=== PATIENT | male | born 1945 | race Hispanic/Latino ===

== ENCOUNTER 2019-08-15 13:43 | Inpatient (IN) | payer OTHER ==
[~2019-08-15] VITALS: Ht 162.6 cm; Wt 97.3 kg
[~2019-08-15 13:43] MED LIST: BUPR150T8 PO; DILT240T13 PO; FLU VACC QS2019-20 36MOS UP/PF 60 MCG/0.5 ML ML IM SCH; LOSA100T58 PO; METO-409 PO; PRAV40TA3 PO; TRAZ-185 PO
[2019-08-15] MEDS ORDERED: SODIUM CHLORIDE 0.9% 1000ML 1,000 ML IV ONE (14:16)
[2019-08-15 14:17] LABS: BASOPHILS % (AUTO) 0.5 % (0.0-5.0); EOSINOPHILS % (AUTO) 1.1 % (0.0-8.0); LYMPHOCYTES % (AUTO) 16.4 % (21.0-51.0); MEAN CORPUSCULAR HEMOGLOBIN 30.5 pg (27.0-33.0); MEAN CORPUSCULAR HGB CONC 32.4 g/dL (32.0-36.0); NEUTROPHILS % (AUTO) 74.1 % (40.0-77.0); NUCLEATED RED BLOOD CELLS 0.6 % (0.0-0.19); PLATELET COUNT (AUTO) 187 K/uL (130-400); WHITE BLOOD COUNT (AUTO) 11.1 K/uL (4.8-10.8)
[2019-08-15 14:23] LABS: HEMATOCRIT 18.8 % (42-54); INR 1.02 (0.85-1.15)
[2019-08-15 14:24] LABS: CREATININE 2.2 mg/dL (0.5-1.5)
[2019-08-15 14:28] LABS: ALBUMIN 2.9 g/dL (3.5-5.0); BILIRUBIN,TOTAL 0.2 mg/dL (0.2-1.0); TOTAL PROTEIN, SERUM 6.1 g/dL (6.0-8.3)
[2019-08-15] MEDS: CEFTRIAXONE SODIUM 1 GM IVP SCH (15:15)
[2019-08-15] MEDS: LACTATED RINGERS 1000ML 1,000 ML IV SCH (15:15)
[2019-08-15] MEDS ORDERED: PANTOPRAZOLE SODIUM 80 MG in SODIUM CHLORIDE 0.9% 100 ML IV SCH (15:15)
[2019-08-15] MEDS ORDERED: OCTREOTIDE ACETATE 500 MCG in SODIUM CHLORIDE 0.9% 97.5 ML IV SCH (15:15)
[2019-08-15] MEDS ORDERED: LORAZEPAM 2 MG/ML 1 ML VIAL IVP PRN (15:30)
[2019-08-15] MEDS ORDERED: ACETAMINOPHEN EXTRA STRENGTH 500 MG TABLET PO PRN (15:30)
[2019-08-15] MEDS ORDERED: ONDANSETRON HCL 4 MG/2 ML VIAL IV PRN (15:30)
[2019-08-15] MEDS ORDERED: PROMETHAZINE HCL 25 MG TABLET PO PRN (15:30)
[2019-08-15] MEDS ORDERED: CHLORDIAZEPOXIDE HCL 25 MG CAP PO PRN (15:30)
[2019-08-15] MEDS ORDERED: PHARMACY COMMUNICATION MISC PRN (15:30)
[2019-08-15 17:00] LABS: HEMATOCRIT 17.1 % (42-54)
[2019-08-15] MEDS ORDERED: SODIUM CHLORIDE 0.9% 250 ML IV ONE (17:26)
[2019-08-15] MEDS ORDERED: MAGNESIUM CITRATE 296 ML SOLUTION PO SCH (18:15)
[2019-08-15] MEDS ORDERED: PEG 3350/NA SULF,BICARB,CL/KCL 4000 ML SOLN PO SCH (18:15)
[2019-08-15] MEDS ORDERED: LACTULOSE 20 GM/30 ML UDCUP PO SCH (18:15)
[2019-08-15] MEDS ORDERED: LACTULOSE 20 GM/30 ML UDCUP ONE (18:19)
[2019-08-15] MEDS ORDERED: MAGNESIUM CITRATE 296 ML SOLUTION ONE (18:19)
[2019-08-15] MEDS ORDERED: OCTREOTIDE ACETATE 100 MCG/ML AMP ONE (18:20)
[2019-08-15] MEDS ORDERED: FLU VACC QS2019-20 36MOS UP/PF 60 MCG/0.5 ML ML IM SCH (18:45)
[2019-08-15] MEDS ORDERED: PRAV40TA3 PO (19:04)
[2019-08-15] MEDS ORDERED: TRAZ150T79 PO (19:04)
[2019-08-15] MEDS ORDERED: LOSA1TAB54 PO (19:04)
[2019-08-15] MEDS ORDERED: BUPR100T13 PO (19:04)
[2019-08-15] MEDS ORDERED: CARV12.511 PO (19:04)
[2019-08-15] MEDS ORDERED: FERR325T22 PO (19:04)
[2019-08-15] MEDS ORDERED: FLUT16H NS (19:04)
[2019-08-15] MEDS ORDERED: DORZ10DR10 OP (19:04)
[2019-08-15] MEDS ORDERED: DICL100G31 TP (19:04)
[2019-08-15] MEDS ORDERED: HYDR-3830 PO (19:04)
[2019-08-15] MEDS ORDERED: SPIR25TA6 PO (19:04)
[2019-08-15] MEDS ORDERED: CHOL200079 PO (19:04)
[2019-08-15] MEDS ORDERED: ALLO100T PO (19:04)
[2019-08-15] MEDS ORDERED: LATA7.5D OP (19:04)
[2019-08-15 21:28] LABS: HEMATOCRIT 23.5 % (42-54)
[2019-08-15] MEDS ORDERED: LACTATED RINGERS 1000ML 1,000 ML IV ONE (21:32)
[2019-08-15] MEDS ORDERED: CEFTRIAXONE SODIUM 1 GM ONE (21:33)
[2019-08-16] VITALS (10 sets, daily range): BP systolic 115–183; BP diastolic 50–83
[2019-08-16] MEDS ORDERED: SODIUM CHLORIDE 0.9% 100 ML IV ONE (02:11)
[2019-08-16] MEDS ORDERED: OCTREOTIDE ACETATE 200 MCG/ML 5 ML VIAL ONE (02:13)
[2019-08-16] MEDS ORDERED: SODIUM CHLORIDE 0.9% 50 ML IV ONE (02:48)
[2019-08-16] MEDS: LACTATED RINGERS 1000ML 1,000 ML IV SCH ×2 (04:35→17:55)
[2019-08-16 05:45] LABS: HEMATOCRIT 20.8 % (42-54)
[2019-08-16 09:25] LABS: HEMATOCRIT 20.4 % (42-54)
[2019-08-16] MEDS ORDERED: SODIUM CHLORIDE 0.9% 250 ML IV ONE (10:20)
[2019-08-16] MEDS: CEFTRIAXONE SODIUM 1 GM IVP SCH (15:15)
--- NOTE | 2019-08-16 17:00 | NUR ---
INITIAL Patient lives with spouse, Malika Hunter, [phone]. No home services. DME: [facility], CPAP. Patient is able to complete ADL's independently and drives. PCP is [facility]. He is on the [place] [facility] at the [facility]. Pharmacy [facility]. DCP is home. Addendum: 08/16/19 at 1702 by TG CUEVA SS Amended: Links added.
[2019-08-16] MEDS ORDERED: PROPOFOL 10 MG/ML 20ML VIAL IV ONE ×2 (17:54→18:16)
[2019-08-16] MEDS ORDERED: LIDOCAINE HCL 1% 20 ML VIAL ONE (17:54)
[2019-08-16 19:26] LABS: HEMATOCRIT 21.8 % (42-54)
[2019-08-16 21:46] LABS: APPEARANCE,URINE Clear (CLEAR); BILIRUBIN,URINE Negative (NEGATIVE); COLOR,URINE Yellow (YELLOW); GLUCOSE, URINE (UA) Negative (NEGATIVE); KETONES,URINE Negative (NEGATIVE); LEUKOCYTE ESTERASE ,URINE Negative (NEGATIVE); NITRATE,URINE Negative (NEGATIVE); OCCULT BLOOD,URINE Negative (NEGATIVE); PROTEIN,URINE Negative (NEGATIVE); UROBILINOGEN,URINE 0.2 mg/dL (0.2-1.0)
[2019-08-17] VITALS (19 sets, daily range): BP systolic 96–146; BP diastolic 51–79
[2019-08-17] MEDS: LACTATED RINGERS 1000ML 1,000 ML IV SCH ×2 (04:26→21:06)
--- NOTE | 2019-08-17 07:30 | NUR ---
AM ASSESSMENT PT LAYING IN BED, WATCHING TV. A/O X 3. NO SOB. NO DISTRESS NOTED. DENIES CHEST PAIN OR DISCOMFORT. DENIES PALPITATIONS. TELE: SR. DENIES N/V. (+) TARRY LOOSE STOOLS. COLONOSCOPY DONE . NPO STATUS REINFORCED. PT TO HAVE PUSH ENTEROSCOPY TO DAY BY DR TELLEZ. PROTONIX GTT, SANDOSTATIN, & LACTATED RINGERS INFUSING. BEDREST. INSTRUCTED TO CALL FOR ASSISTANCE. CALL JERRICA W/IN REACH.
[2019-08-17] MEDS: CEFTRIAXONE SODIUM 1 GM IVP SCH (09:00)
[2019-08-17] MEDS: FOLIC ACID 1 MG TABLET PO SCH (09:00)
[2019-08-17] MEDS: THIAMINE HCL 100 MG/ML 2ML VIAL IVP SCH (09:00)
[2019-08-17 14:27] LABS: HEMATOCRIT 22.6 % (42-54); MEAN CORPUSCULAR HEMOGLOBIN 29.8 pg (27.0-33.0); MEAN CORPUSCULAR HGB CONC 32.3 g/dL (32.0-36.0); MEAN CORPUSCULAR VOLUME 92.2 fL (79-99); NUCLEATED RED BLOOD CELLS 0.3 % (0.0-0.19); PLATELET COUNT (AUTO) 197 K/uL (130-400); RED BLOOD CELL COUNT(AUTO) 2.45 MIL/uL (4.50-6.20); RED CELL DISTRIBUTION WIDTH 16.5 % (11.0-15.5); WHITE BLOOD COUNT (AUTO) 6.4 K/uL (4.8-10.8)
[2019-08-17 14:43] LABS: CREATININE 1.3 mg/dL (0.5-1.5); POTASSIUM 4.7 mmol/L (3.5-5.1)
--- NOTE | 2019-08-17 16:19 | NUR ---
STATUS PT TAKEN TO ENDO VIA BED FOR PUSH ENDOSCOPY W/MAC.
[2019-08-17] MEDS ORDERED: FENTANYL CITRATE PF 50 MCG/1 ML 2ML VIAL ONE (16:32)
[2019-08-17] MEDS ORDERED: MIDAZOLAM HCL 1 MG/ML 2ML VIAL ONE (16:32)
--- NOTE | 2019-08-17 16:50 | NUR ---
STATUS PT BACK FROM PACU, S/P PUSH ENTEROSCOPY W/SEDATION ONLY. V/S RECORDED. TELE: SR. PT TO HAVE CLEAR LIQUID DIET.
[2019-08-18 04:19] VITALS: BP 137/78
[2019-08-18 07:00] VITALS: BP 123/62
--- NOTE | 2019-08-18 08:15 | NUR ---
AM ASSESSMENT PT SITTING IN CARDIAC RECLINER, WATCHING. A/O X 3. NO SOB. NO DISTRESS NOTED. DENIES CHEST PAIN OR DISCOMFORT. DENIES PALPITATIONS. TELE: SR. DENIES N/V. NO TARRY STOOLS. UP W/ASSISTANCE. INSTRUCTED TO CALL FOR ASSISTANCE. CALL JERRICA W/IN REACH.
[2019-08-18] MEDS: CEFTRIAXONE SODIUM 1 GM IVP SCH (08:30)
[2019-08-18] MEDS: THIAMINE HCL 100 MG/ML 2ML VIAL IVP SCH (08:31)
[2019-08-18] MEDS: FOLIC ACID 1 MG TABLET PO SCH (08:31)
[2019-08-18 11:00] VITALS: BP 145/76
[2019-08-18 15:00] VITALS: BP 139/63
[2019-08-18 19:36] VITALS: BP 135/66
[2019-08-18 23:55] VITALS: BP 124/60
[2019-08-19 03:46] VITALS: BP 126/61
[2019-08-19 07:17] LABS: BASOPHILS % (AUTO) 0.8 % (0.0-5.0); EOSINOPHILS % (AUTO) 4.3 % (0.0-8.0); HEMATOCRIT 23.1 % (42-54); LYMPHOCYTES % (AUTO) 32.1 % (21.0-51.0); MEAN CORPUSCULAR HEMOGLOBIN 29.5 pg (27.0-33.0); MONOCYTES % (AUTO) 9.6 % (3.0-13.0); NEUTROPHILS % (AUTO) 52.5 % (40.0-77.0); PLATELET COUNT (AUTO) 188 K/uL (130-400); RED BLOOD CELL COUNT(AUTO) 2.51 MIL/uL (4.50-6.20); RED CELL DISTRIBUTION WIDTH 16.6 % (11.0-15.5)
[2019-08-19 07:21] LABS: CREATININE 1.3 mg/dL (0.5-1.5); POTASSIUM 4.4 mmol/L (3.5-5.1)
[2019-08-19 07:57] VITALS: BP 144/64
[2019-08-19] MEDS: THIAMINE HCL 100 MG/ML 2ML VIAL IVP SCH (09:09)
[2019-08-19] MEDS: CEFTRIAXONE SODIUM 1 GM IVP SCH (09:09)
[2019-08-19] MEDS: FOLIC ACID 1 MG TABLET PO SCH (09:09)
[2019-08-19 12:13] VITALS: BP 126/54
[2019-08-19 16:36] VITALS: BP 124/56
[2019-08-19 19:41] VITALS: BP 123/59
[2019-08-20 00:06] VITALS: BP 125/54
[2019-08-20 04:02] VITALS: BP 126/45
[2019-08-20 05:25] LABS: HEMATOCRIT 24.3 % (42-54); MEAN CORPUSCULAR HEMOGLOBIN 29.4 pg (27.0-33.0); MEAN CORPUSCULAR HGB CONC 32.1 g/dL (32.0-36.0); MEAN CORPUSCULAR VOLUME 91.7 fL (79-99); PLATELET COUNT (AUTO) 214 K/uL (130-400); RED BLOOD CELL COUNT(AUTO) 2.65 MIL/uL (4.50-6.20); RED CELL DISTRIBUTION WIDTH 16.1 % (11.0-15.5); WHITE BLOOD COUNT (AUTO) 6.5 K/uL (4.8-10.8)
[2019-08-20 06:04] LABS: BAND NEUTROPHILS % (MANUAL) 1 % (0-2); BASOPHILS % (MANUAL) 1 % (0-2); EOSINOPHILS % (MANUAL) 4 % (1-6); LYMPHOCYTES % (MANUAL) 30 % (22-44); MONOCYTES % (MANUAL) 5 % (2-9); REACTIVE LYMPHOCYTES 2 % (0-0); SEGMENTED NEUTROPHILS % 57 % (40-70)
[2019-08-20 06:05] LABS: MAN.DIFF COMMENT-IMPRESSION MANUAL DIFFERENTIAL; PLATELET MORPHOLOGY COMMENT ADEQUATE
[2019-08-20 06:10] LABS: CREATININE 1.1 mg/dL (0.5-1.5); POTASSIUM 4.3 mmol/L (3.5-5.1)
[2019-08-20 08:07] VITALS: BP 133/58
[2019-08-20] MEDS ORDERED: SODIUM CHLORIDE 0.9% 100 ML IV ONE (08:40)
[2019-08-20] MEDS: CEFTRIAXONE SODIUM 1 GM IVP SCH (08:50)
[2019-08-20] MEDS: THIAMINE HCL 100 MG/ML 2ML VIAL IVP SCH (08:50)
[2019-08-20] MEDS: FOLIC ACID 1 MG TABLET PO SCH (08:50)
--- NOTE | 2019-08-20 10:43 | NUR ---
ERROR ON ULTRACET THAT WAS SCANNED. PATIENT RECEIVED 2 TABS NOT 1 PREVIOUSLY SCANNED.
[2019-08-20 12:11] VITALS: BP 148/68
[2019-08-20] MEDS ORDERED: PANT40TA PO (13:26)
--- NOTE | 2019-08-20 15:06 | NUR ---
DISCHARGE DISCHARGE INSTRUCTIONS GIVEN TO PATIENT, VERBALIZED UNDERSTANDING. PRESCRIPTION GIVEN FOR PROTONIX. TELEPAK REMOVED. IV'S DISCONTINUED.
== END 2019-08-20 15:14 | disposition home or self-care (01) | DRG 377 ==
LOC: EDH 13:43 → EDHIP 15:05 → 2DH 08-16 21:50
PROVIDERS: ADMIT Internal Medicine; ATTEND Internal Medicine
PROC: 30233N1 Transfusion of Nonautologous Red Blood Cells into Peripheral Vein, Percutaneous Approach (ICD-10-PCS; principal; 2019-08-15)
PROC: 0DJ08ZZ Inspection of Upper Intestinal Tract, Via Natural or Artificial Opening Endoscopic (ICD-10-PCS; 2019-08-16)
PROC: 0DBL8ZZ Excision of Transverse Colon, Via Natural or Artificial Opening Endoscopic (ICD-10-PCS; 2019-08-16)
PROC: 0DJD8ZZ Inspection of Lower Intestinal Tract, Via Natural or Artificial Opening Endoscopic (ICD-10-PCS; 2019-08-17)
PROC: 0D598ZZ Destruction of Duodenum, Via Natural or Artificial Opening Endoscopic (ICD-10-PCS; 2019-08-17)
DX: K29.01 Acute gastritis with bleeding (principal); R57.8 Other shock; D62 Acute posthemorrhagic anemia; E87.2 Acidosis; N17.9 Acute kidney failure, unspecified; F10.20 Alcohol dependence, uncomplicated; E66.9 Obesity, unspecified; E78.5 Hyperlipidemia, unspecified; I95.1 Orthostatic hypotension; M10.9 Gout, unspecified; I12.9 Hypertensive chronic kidney disease with stage 1 through stage 4 chronic kidney disease, or unspecified chronic kidney disease; Y90.9 Presence of alcohol in blood, level not specified; K21.0 Gastro-esophageal reflux disease with esophagitis; K57.30 Diverticulosis of large intestine without perforation or abscess without bleeding; K64.0 First degree hemorrhoids; K63.5 Polyp of colon; K31.811 Angiodysplasia of stomach and duodenum with bleeding; N18.9 Chronic kidney disease, unspecified; Z80.42 Family history of malignant neoplasm of prostate; Z82.49 Family history of ischemic heart disease and other diseases of the circulatory system; Z85.46 Personal history of malignant neoplasm of prostate; Z87.11 Personal history of peptic ulcer disease; Z90.49 Acquired absence of other specified parts of digestive tract; Z68.36 Body mass index [BMI] 36.0-36.9, adult
CPT/HCPCS: 36415; 43235; 44369; 45380; 71045; 80048; 80053; 81003; 82948; 83605; 83690; 83880; 85014; 85018; 85025; 85027; 85610; 85730; 86850; 86900; 86901; 86922; 93005; 99291; A4606; C9113; G0378; J0696; J2250; J2354; J2405; J2704; J3010; J3411; J7030; J7120; P9016; Q2035

== ENCOUNTER 2019-11-08 20:20 | Emergency (ER) | payer OTHER ==
[~2019-11-08 20:20] MED LIST changes: +ALLO100T PO; +BUPR100T13 PO; -BUPR150T8 PO; +CARV12.511 PO; +CHOL200079 PO; +DICL100G31 TP; +DORZ10DR10 OP; +FERR325T22 PO; -FLU VACC QS2019-20 36MOS UP/PF 60 MCG/0.5 ML ML IM SCH; +FLUT16H NS; +HYDR-3830 PO; +LATA7.5D OP; +LOSA1TAB54 PO; +PANT40TA PO; +SPIR25TA6 PO; +TRAZ150T79 PO
[2019-11-08 21:19] LABS: BASOPHILS % (AUTO) 1.1 % (0.0-5.0); EOSINOPHILS % (AUTO) 3.7 % (0.0-8.0); HEMATOCRIT 42.4 % (42-54); MEAN CORPUSCULAR HEMOGLOBIN 26.7 pg (27.0-33.0); MEAN CORPUSCULAR HGB CONC 31.6 g/dL (32.0-36.0); MEAN CORPUSCULAR VOLUME 84.6 fL (79-99); PLATELET COUNT (AUTO) 227 K/uL (130-400); RED BLOOD CELL COUNT(AUTO) 5.01 MIL/uL (4.50-6.20); RED CELL DISTRIBUTION WIDTH 13.4 % (11.0-15.5); WHITE BLOOD COUNT (AUTO) 8.3 K/uL (4.8-10.8)
[2019-11-08 21:50] LABS: ALBUMIN 3.8 g/dL (3.5-5.0); BILIRUBIN,TOTAL 0.3 mg/dL (0.2-1.0); CREATININE 1.4 mg/dL (0.5-1.5); POTASSIUM 5.2 mmol/L (3.5-5.1); TOTAL PROTEIN, SERUM 8.4 g/dL (6.0-8.3)
[2019-11-08] MEDS ORDERED: IOHEXOL-350 75 ML VIAL IV ONE (22:10)
[2019-11-08 22:16] LABS: AMYLASE 92 U/L (25-115); LIPASE 131 U/L (114-286)
[2019-11-08 22:57] LABS: APPEARANCE,URINE Clear (CLEAR); BILIRUBIN,URINE Negative (NEGATIVE); COLOR,URINE Yellow (YELLOW); GLUCOSE, URINE (UA) Negative (NEGATIVE); KETONES,URINE Negative (NEGATIVE); LEUKOCYTE ESTERASE ,URINE Negative (NEGATIVE); NITRATE,URINE Negative (NEGATIVE); OCCULT BLOOD,URINE Negative (NEGATIVE); PROTEIN,URINE Negative (NEGATIVE); UROBILINOGEN,URINE 0.2 mg/dL (0.2-1.0)
== END 2019-11-08 23:16 | disposition home or self-care (01) ==
LOC: EDH 20:20
DX: K64.1 Second degree hemorrhoids (principal); K59.00 Constipation, unspecified; I10 Essential (primary) hypertension; E78.00 Pure hypercholesterolemia, unspecified; Z90.49 Acquired absence of other specified parts of digestive tract; Z85.46 Personal history of malignant neoplasm of prostate
CPT/HCPCS: 36415; 74177; 80053; 81003; 82150; 83690; 85025; 99285; Q9967

== ENCOUNTER 2020-06-28 20:35 | Emergency (ER) | payer OTHER, MEDICARE ==
[2020-06-28 21:01] LABS: EOSINOPHILS % (AUTO) 5.6 % (0.0-8.0); HEMATOCRIT 38.1 % (42-54); LYMPHOCYTES % (AUTO) 28.7 % (21.0-51.0); MEAN CORPUSCULAR HEMOGLOBIN 28.2 pg (27.0-33.0); MEAN CORPUSCULAR HGB CONC 32.8 g/dL (32.0-36.0); MONOCYTES % (AUTO) 6.2 % (3.0-13.0); NEUTROPHILS % (AUTO) 58.2 % (40.0-77.0); PLATELET COUNT (AUTO) 216 K/uL (130-400); RED BLOOD CELL COUNT(AUTO) 4.43 MIL/uL (4.50-6.20); RED CELL DISTRIBUTION WIDTH 13.6 % (11.0-15.5); WHITE BLOOD COUNT (AUTO) 7.9 K/uL (4.8-10.8)
[2020-06-28 21:11] LABS: CREATININE 2.9 mg/dL (0.5-1.5); POTASSIUM 3.5 mmol/L (3.5-5.1)
[2020-06-28 21:16] LABS: ALBUMIN 3.9 g/dL (3.5-5.0); BILIRUBIN,TOTAL 0.4 mg/dL (0.2-1.0); TOTAL PROTEIN, SERUM 8.8 g/dL (6.0-8.3)
[2020-06-28 21:55] LABS: APPEARANCE,URINE Clear (CLEAR); BILIRUBIN,URINE Negative (NEGATIVE); COLOR,URINE Yellow (YELLOW); GLUCOSE, URINE (UA) Negative (NEGATIVE); KETONES,URINE Negative (NEGATIVE); LEUKOCYTE ESTERASE ,URINE Negative (NEGATIVE); NITRATE,URINE Negative (NEGATIVE); OCCULT BLOOD,URINE Negative (NEGATIVE); PH,URINE 5.5 (5.0-8.0); PROTEIN,URINE Negative (NEGATIVE)
[2020-06-28 23:09] LABS: CREATININE 2.6 mg/dL (0.5-1.5); POTASSIUM 3.4 mmol/L (3.5-5.1)
== END 2020-06-28 23:33 | disposition home or self-care (01) ==
LOC: EDH 20:35
DX: I13.10 Hypertensive heart and chronic kidney disease without heart failure, with stage 1 through stage 4 chronic kidney disease, or unspecified chronic kidney disease (principal); G89.29 Other chronic pain; R10.9 Unspecified abdominal pain; E78.00 Pure hypercholesterolemia, unspecified; Z90.49 Acquired absence of other specified parts of digestive tract
CPT/HCPCS: 36415; 74176; 80048; 80053; 81003; 85025; 96360

== ENCOUNTER → 2020-07-11 | Outpatient (CLI) | payer OTHER | END | disposition home or self-care (01) | LOC: RAH 08:42 | PROVIDERS: ATTEND Internal Medicine Gastroenterology | DX: N28.1 Cyst of kidney, acquired (principal); R10.32 Left lower quadrant pain; R11.0 Nausea; K57.30 Diverticulosis of large intestine without perforation or abscess without bleeding; Z90.49 Acquired absence of other specified parts of digestive tract | CPT/HCPCS: 74176 ==

== ENCOUNTER 2022-01-23 13:33 | Emergency (ER) | payer OTHER ==
[~2022-01-23] VITALS: Ht 162.6 cm; Wt 95.3 kg
[2022-01-23 14:16] LABS: BASOPHILS % (AUTO) 0.8 % (0.0-5.0); EOSINOPHILS % (AUTO) 4.1 % (0.0-8.0); HEMATOCRIT 39.4 % (42-54); LYMPHOCYTES % (AUTO) 26.3 % (21.0-51.0); MEAN CORPUSCULAR HGB CONC 34.8 g/dL (32.0-36.0); MEAN CORPUSCULAR VOLUME 86.2 fL (79-99); MONOCYTES % (AUTO) 6.1 % (3.0-13.0); NEUTROPHILS % (AUTO) 62.5 % (40.0-77.0); PLATELET COUNT (AUTO) 142 K/uL (130-400); RED BLOOD CELL COUNT(AUTO) 4.57 MIL/uL (4.50-6.20); RED CELL DISTRIBUTION WIDTH 13.8 % (11.0-15.5); WHITE BLOOD COUNT (AUTO) 6.6 K/uL (4.8-10.8)
[2022-01-23 14:23] LABS: APPEARANCE,URINE CLEAR (CLEAR); BILIRUBIN,URINE NEGATIVE (NEGATIVE); COLOR,URINE YELLOW (YELLOW); GLUCOSE, URINE (UA) NEGATIVE (NEGATIVE); KETONES,URINE NEGATIVE (NEGATIVE); LEUKOCYTE ESTERASE ,URINE NEGATIVE (NEGATIVE); NITRATE,URINE NEGATIVE (NEGATIVE); OCCULT BLOOD,URINE NEGATIVE (NEGATIVE); PROTEIN,URINE NEGATIVE (NEGATIVE); UROBILINOGEN,URINE 0.2 mg/dL (0.2-1.0)
[2022-01-23 14:29] LABS: CREATININE 1.7 mg/dL (0.5-1.5); POTASSIUM 3.9 mmol/L (3.5-5.1)
[2022-01-23 14:35] LABS: ALBUMIN 3.4 g/dL (3.5-5.0); TOTAL PROTEIN, SERUM 7.3 g/dL (6.0-8.3)
[2022-01-23 14:38] LABS: BACTERIA,URINE Rare /HPF (None Seen); RBC,URINE 0-1 /HPF (0-1); SQUAMOUS EPITHELIAL CELL,UR Rare /HPF (0-2); WBC,URINE 0-1 /HPF (0-1)
[2022-01-23 15:07] VITALS: BP 147/64
[2022-01-23] MEDS ORDERED: CYCL10TA16 PO (15:37)
[2022-01-23] MEDS ORDERED: NAPR-1180 PO (15:37)
== END 2022-01-23 15:45 | disposition home or self-care (01) ==
LOC: EDH 13:33
DX: M54.42 Lumbago with sciatica, left side (principal); N28.9 Disorder of kidney and ureter, unspecified; I25.10 Atherosclerotic heart disease of native coronary artery without angina pectoris; E78.00 Pure hypercholesterolemia, unspecified; I10 Essential (primary) hypertension; Z79.1 Long term (current) use of non-steroidal anti-inflammatories (NSAID); Z79.899 Other long term (current) drug therapy; E66.9 Obesity, unspecified; Z68.36 Body mass index [BMI] 36.0-36.9, adult
CPT/HCPCS: 36415; 72100; 80053; 81001; 83690; 85025

== ENCOUNTER 2022-05-08 11:04 | Emergency (ER) | payer OTHER ==
[~2022-05-08] VITALS: Ht 162.6 cm; Wt 98.0 kg
[~2022-05-08 11:04] MED LIST changes: +CARV25TA PO; +CHLO25TA3 PO; -CHOL200079 PO; -DICL100G31 TP; -DILT240T13 PO; -DORZ10DR10 OP; +FAMO20TA8 PO; -FERR325T22 PO; -FLUT16H NS; -HYDR-3830 PO; +ICOS1CAP2 PO; -LATA7.5D OP; -LOSA1TAB54 PO; -METO-409 PO; +OMEP40CA21 PO; +ORLI120C23 PO; -PANT40TA PO; -PRAV40TA3 PO; +PRAV80TA21 PO; -SPIR25TA6 PO; -TRAZ-185 PO; -TRAZ150T79 PO
[2022-05-08 11:57] LABS: BASOPHILS % (AUTO) 0.6 % (0.0-5.0); EOSINOPHILS % (AUTO) 2.2 % (0.0-8.0); HEMATOCRIT 34.9 % (42-54); LYMPHOCYTES % (AUTO) 20.9 % (21.0-51.0); MEAN CORPUSCULAR HEMOGLOBIN 25.8 pg (27.0-33.0); MEAN CORPUSCULAR HGB CONC 31.5 g/dL (32.0-36.0); MEAN CORPUSCULAR VOLUME 81.9 fL (79-99); MONOCYTES % (AUTO) 7.2 % (3.0-13.0); NEUTROPHILS % (AUTO) 68.6 % (40.0-77.0); PLATELET COUNT (AUTO) 171 K/uL (130-400); RED BLOOD CELL COUNT(AUTO) 4.26 MIL/uL (4.50-6.20); WHITE BLOOD COUNT (AUTO) 8.3 K/uL (4.8-10.8)
[2022-05-08 12:02] LABS: APPEARANCE,URINE CLEAR (CLEAR); BILIRUBIN,URINE NEGATIVE (NEGATIVE); COLOR,URINE LIGHT-YELLOW (YELLOW); GLUCOSE, URINE (UA) NEGATIVE (NEGATIVE); KETONES,URINE NEGATIVE (NEGATIVE); LEUKOCYTE ESTERASE ,URINE NEGATIVE Leu/uL (NEGATIVE); NITRATE,URINE NEGATIVE (NEGATIVE); OCCULT BLOOD,URINE NEGATIVE (NEGATIVE); PH,URINE 6.5 (5.0-8.0); PROTEIN,URINE NEGATIVE (NEGATIVE); UROBILINOGEN,URINE 0.2 mg/dL (0.2-1.0)
[2022-05-08 12:11] LABS: ALBUMIN 3.5 g/dL (3.5-5.0); CREATININE 1.3 mg/dL (0.5-1.5); POTASSIUM 3.9 mmol/L (3.5-5.1); TOTAL PROTEIN, SERUM 7.5 g/dL (6.0-8.3)
[2022-05-08] MEDS ORDERED: DIATR MEGLU/DIATRIZOATE SODIUM 30 ML BOTTLE ONE (13:38)
[2022-05-08 15:19] VITALS: BP 161/65
[2022-05-08] MEDS ORDERED: IOHEXOL 350 MG/ML 100ML INFUS..BTL IV ONE (17:15)
[2022-05-08] MEDS ORDERED: ONDA4TAB10 PO (18:07)
[2022-05-08] MEDS ORDERED: AMOX1TAB16 PO (18:07)
[2022-05-08] MEDS ORDERED: AMOX/CLAV 875/125MG TAB PO ONE ×2 (18:13→18:30)
== END 2022-05-08 19:01 | disposition home or self-care (01) ==
LOC: EDH 11:04
DX: K57.92 Diverticulitis of intestine, part unspecified, without perforation or abscess without bleeding (principal); E78.00 Pure hypercholesterolemia, unspecified; I10 Essential (primary) hypertension; Z90.49 Acquired absence of other specified parts of digestive tract; Z79.899 Other long term (current) drug therapy
CPT/HCPCS: 99285; 74177; 82270; 80053; 85025; 86850; 86900; 86901; 84153; 81003; 36415; Q9963; Q9967